=== PATIENT | male | born 1975 | race African-American/Black ===

== ENCOUNTER 2016-07-25 19:04 | Emergency (ER) | payer MEDICAID ==
[~2016-07-25] VITALS: Ht 167.6 cm; Wt 58.0 kg
[~2016-07-25 19:04] MED LIST: NAPR500 PO; PENI500T PO
[2016-07-25 19:05] VITALS: BP 175/99; PULSE 75; RESP 16; TEMP 98.7; O2SAT 98
--- NOTE | 2016-07-25 19:47 | PD ---
Physical Exam Date Seen by Provider: Jul 25, 2016 Time Seen by Provider: 19:44 Narrative 41 YOBM C/O DENTAL PAIN WITH WEATHER CHANGES. PAIN IN HIS TEETH GIVING HIM BARROW' S. NO F/C,N/V VSS. PT AWAITING BED PLACEMENT. Data Data Last Documented VS Vital Signs Date Time Temp Pulse Resp B/P Pulse Ox O2 Delivery O2 Flow Rate FiO2 07/25/16 19:05 98.7 75 16 175/99 98 Room Air [facility] Medical Record Reviewed: Yes Supervised Visit with SAMANTHA: Yes Jonathan Alejandra Jul 25, 2016 19:47
[2016-07-25] MEDS ORDERED: IBUP800T23 PO (20:16)
[2016-07-25] MEDS ORDERED: PENI500T PO (20:16)
[2016-07-25] MEDS ORDERED: MAGICADU2 SWISH-SPIT (20:16)
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
== END 2016-07-25 20:27 | disposition home or self-care (01) ==
LOC: NEPK 19:04
DX: K02.9 Dental caries, unspecified (principal); I10 Essential (primary) hypertension
CPT/HCPCS: 99282

== ENCOUNTER 2017-03-09 12:34 | Emergency (ER) | payer MEDICAID ==
[~2017-03-09] VITALS: Ht 167.6 cm; Wt 60.0 kg
[~2017-03-09 12:34] MED LIST changes: +IBUP1TAB7 PO; +MAGICADU2 SWISH-SPIT; -NAPR500 PO
[2017-03-09 12:35] VITALS: BP 144/85; PULSE 67; RESP 16; TEMP 98.7; O2SAT 99
--- NOTE | 2017-03-09 13:26 | RADRPT ---
EXAM DATE/TIME: 03/09/2017 13:04 [facility] COMPARISON: No previous studies available for comparison. INDICATIONS : Chest and rib pain from fall down stairs this morning. MEDICAL HISTORY : None. SURGICAL HISTORY : None. ENCOUNTER: Initial ACUITY: 1 day PAIN SCORE: 6/10 LOCATION: Left chest FINDINGS: PA and lateral views of the chest demonstrate the lungs to be symmetrically aerated without evidence of mass, infiltrate or effusion. The cardiomediastinal contours are unremarkable. Osseous structure s are intact. CONCLUSION: Normal examination. Osvaldo Khan MD on March 09, 2017 at 13:24 Board Certified Radiologist. This report was verified electronically.
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
[2017-03-09] MEDS ORDERED: IBUP-232 PO (13:53)
[2017-03-09] MEDS ORDERED: ACETAMINOPHEN/HYDROcodone 325 MG/5 MG TAB PO ONE (14:00)
== END 2017-03-09 15:02 | disposition home or self-care (01) ==
LOC: NEPC 12:34
DX: S20.212A Contusion of left front wall of thorax, initial encounter (principal); M25.532 Pain in left wrist; W10.9XXA Fall (on) (from) unspecified stairs and steps, initial encounter
CPT/HCPCS: 71020; 73110; 99285